=== PATIENT | male | born 1995 | race Caucasian/White ===

== ENCOUNTER 2020-10-27 15:53 | Emergency (ER) | payer BC ==
[~2020-10-27] VITALS: Ht 180.3 cm; Wt 68.4 kg
[2020-10-27 20:44] VITALS: BP 139/86
== END 2020-10-27 20:50 | disposition home or self-care (01) ==
LOC: ER 15:53
DX: R07.89 Other chest pain (principal); R42 Dizziness and giddiness; I49.9 Cardiac arrhythmia, unspecified
CPT/HCPCS: 36415; 84484; 93005; 99284